=== PATIENT | female | born 1960 | race Caucasian/White ===

== ENCOUNTER 2017-10-16 10:11 | Emergency (ER) | payer BC, SELFPAY ==
[2017-10-16] VITALS (9 sets, daily range): BP systolic 103–122; BP diastolic 65–90; PULSE 72–109; RESP 14–20; TEMP 37.1; O2SAT 95–100; BMI 27.4
[2017-10-16 10:28] LABS: Add Manual Diff / Slide Review NO; Basophils Percent Auto 0.4 % (0-2); Eosinophils Percent Auto 1.5 % (2-4); Hematocrit 43.8 % (36-46); Hemoglobin 15.4 g/dL (12.0-16.0); Lymphocytes Percent Auto 3.2 % (25-40); Mean Corpuscular HGB Conc 35.1 % (30-36); Mean Corpuscular Hemoglobin 33.7 PG (26-34); Mean Corpuscular Volume 95.9 fL (80-100); Monocytes Percent Auto 5.1 % (3-14); Neutrophils Absolute Auto 11100 /uL (3000-5900); Neutrophils Percent Auto 89.8 % (50-75); Platelet Count 267 X10^3/uL (150-400); Red Blood Cell Count 4.57 X10^6/uL (4.0-5.2); Red Cell Distribution Width 13.9 % (11.6-14.8); White Blood Cell Count 12.4 X10^3/uL (4.5-11.0)
--- NOTE | 2017-10-16 10:37 | PC.NURSE ---
CALLED JONATHAN PER PTS REQUEST TO INFORM HER ON PTS CONDITION
[2017-10-16 10:45] LABS: Alanine Aminotransferase 23 IU/L (9-52); Albumin 4.3 g/dL (3.5-5.0); Albumin Globulin Ratio 1.3 (1.0-2.8); Alkaline Phosphatase 61 U/L (38-126); Aspartate Aminotransferase 28 IU/L (14-36); Bilirubin Total 0.8 mg/dL (0.2-1.3); Calcium 8.9 mg/dL (8.4-10.2); Estimated Glomerular Filt Rate > 60.0 mL/min (>60); Globulin 3.3 g/dL (1.7-4.1); Glucose 129 mg/dL (70-100); HEMOLYSIS 45 (0-50); Potassium 4.6 mmol/L (3.4-5.1); Sodium 143 mmol/L (137-145); Total Protein 7.6 g/dL (6.3-8.2)
[2017-10-16] MEDS: ONDANSETRON 4 MG/2 ML INJ IV (10:47)
[2017-10-16] MEDS: SODIUM CHLORIDE 0.9% 1,000 ML 1000 ML IV ×2 (10:47→12:25)
--- NOTE | 2017-10-16 15:20 | ED_ITS ---
HPI - Abdominal Pain General Chief Complaint: Abdominal Pain Stated Complaint: N/V/D Time Seen by Provider: 10/16/17 10:12 Source: patient and EMS Mode of arrival: EMS Limitations: no limitations History of Present Illness HPI narrative: Patient presents to the emergency department today with a chief complaint of multiple episodes of diarrhea with nausea and some vomiting since 5 :00 a.m.. She complains of some generalized abdominal discomfort. She is not dizzy or lightheaded. She does not live locally and was resting in her car at a local parking lot trying to make her way home. She denies recent antibiotics , travel, exposure to ill persons MD complaint: abdominal pain Onset (ago): hour(s) Pain Consistency: intermittent Location: diffuse Severity: mild Quality: cramping Radiation: none Migration to: no migration Relieving factors: nothing Exacerbating factors: nothing Associated symptoms: nausea and diarrhea Related Data Home Medications Medication Instructions Recorded Confirmed oxycodone 5 mg PO Q4-6H PRN 10/16/17 10/16/17 Previous Rx's Medication Instructions Recorded diphenoxylate-atropine [Lomotil] 1 tab PO Q6H PRN #10 tab 10/16/17 ondansetron [Zofran ODT] 4 mg PO Q6H PRN #14 tab 10/16/17 Allergies Allergy/AdvReac Type Severity Reaction Status Date / Time amoxicillin Allergy Mild Verified 10/16/17 11:01 ampicillin Allergy Mild Verified 10/16/17 11:01 Review of Systems Review of Systems All systems reviewed & are unremarkable except as noted in HPI and below Constitutional Denies chills, Denies fever(s), Denies lethargy and Denies weakness Eyes Denies change in vision, Denies eye discharge, Denies irritation and Denies loss of vision Cardiovascular Denies chest pain, Denies irregular heart rhythm, Denies lightheadedness, Denies palpitations, Denies dyspnea, Denies dyspnea on exertion and Denies orthopnea Respiratory Denies cough, Denies dyspnea, Denies dyspnea on exertion and Denies wheezing Gastrointestinal Gastrointestinal: Reports abdominal pain, Reports change in bowel habits, Reports diarrhea, Reports nausea and Reports vomiting Genitourinary Denies hematuria, Denies flank pain, Denies urinary incontinence and Denies urinary urgency Musculoskeletal Denies back pain, Denies muscle weakness, Denies numbness and Denies tingling Integumentary/Breasts Denies pruritus, Denies erythema, Denies rash and Denies wounds Neurologic Denies confusion, Denies loss of vision, Denies numbness, Denies tingling and Denies weakness Psychiatric Reports anxiety, Denies confusion, Denies depression, Denies homicidal ideation and Denies suicidal ideation Endocrine Denies palpitations Hematologic/Lymphatic Denies easy bruising Allergic/Immunologic Denies wheezing [facility] Surgical History History of section (Acute) Social History Smoking Status: Current every day smoker Exam Narrative Exam Narrative: Pleasant 57-year-old female in mild distress, Const General: cooperative, well developed, in distress and anxious Nutritional Appearance: well nourished Orientation: alert, awake, oriented x3 and not confused HENMT Head: normocephalic and atraumatic Ears: external ears normal and TM's normal bilaterally Nose: external nose normal and No nasal discharge Face and sinus: sinuses nontender, face symmetric, no sinus tenderness and No dry mucous membranes Mouth: oral mucosae normal and moist mucous membranes Throat: posterior oropharynx normal Eyes General: appearance normal, both eyes and all related structures Eyelids: eyelids normal Conjunctivae: conjunctivae normal Sclera: sclerae normal Pupils: PERRL EOM: EOM intact bilaterally Neck Neck: normal visual inspection, trachea midline, No midline deformity and No JVD Lymphatic: No lymphedema Resp Effort & Inspection: normal respiratory effort, able to speak in complete sentences, no respiratory distress and no use of accessory muscles Auscultation: clear to auscultation bilaterally, no rales, no rhonchi and no wheezes Cardio Rate: regular rate Rhythm: regular rhythm Heart Sounds: no click, no gallops, no murmurs and no rubs Pulses: normal peripheral pulses GI Inspection: non-distended Palpation: soft, no hepatosplenomegaly, No guarding, No pulsatile mass and No tender Auscultation: normal bowel sounds Skin General: no rashes or lesions noted, No jaundice and No petechiae Neuro General: alert, awake and oriented x3 Cognition: normal cognition Speech: speech normal Psych Appearance: well kempt Mental Status: mental status grossly normal Attitude: cooperative Thought Content: normal and suicidality Judgment: judgment good MDM - Abdominal Pain Lab Data Result diagrams: 10/16/17 10:10 10/16/17 10:10 Lab Results 10/16/17 10/16/17 Range/Units 10:10 10:10 WBC 12.4 H (4.5-11.0) X10^3/uL RBC 4.57 (4.0-5.2) X10^6/uL Hgb 15.4 (12.0-16.0) g/dL Hct 43.8 (36-46) % MCV 95.9 (80-100) fL MCH 33.7 (26-34) PG MCHC 35.1 (30-36) % RDW 13.9 (11.6-14.8) % Plt Count 267 (150-400) X10^3/uL Neut % (Auto) 89.8 H (50-75) % Lymph % (Auto) 3.2 L (25-40) % Edgar % (Auto) 5.1 (3-14) % Eos % (Auto) 1.5 L (2-4) % Baso % (Auto) 0.4 (0-2) % Neut # (Auto) 60492 H (3203-1097) /uL Sodium 143 (137-145) mmol/L Potassium 4.6 (3.4-5.1) mmol/L Chloride 106.0 (98-107) mmol/L Carbon Dioxide 23.0 (22-32) mmol/L BUN 15.0 (7-17) mg/dL Creatinine 0.50 L (0.52-1.04) mg/dL Estimated GFR > 60.0 (>60) mL/min BUN/Creatinine Ratio 30.0 H (6-22) Glucose 129 H (70-100) mg/dL Calcium 8.9 (8.4-10.2) mg/dL Total Bilirubin 0.8 (0.2-1.3) mg/dL AST 28 (14-36) IU/L ALT 23 (9-52) IU/L Alkaline Phosphatase 61 (38-126) U/L Total Protein 7.6 (6.3-8.2) g/dL Albumin 4.3 (3.5-5.0) g/dL Globulin 3.3 (1.7-4.1) g/dL Albumin/Globulin Ratio 1.3 (1.0-2.8) Course Orders Ordered: ED Orders 10/16/17 10:10 Complete Blood Count AUTO DIFF Stat Comprehensive Metabolic Panel Stat Discontinued Medications Sodium Chloride (Normal Saline 0.9%) 1,000 mls @ 1,000 mls/hr IV BOLUS ONE Stop: 10/16/17 11:16 Last Infusion: 10/16/17 12:31 Dose: 0 mls/hr Admin: 10/16/17 10:47 Dose: 1,000 mls/hr Sodium Chloride (Normal Saline 0.9%) 1,000 mls @ 1,000 mls/hr IV BOLUS ONE Stop: 10/16/17 13:21 Last Admin: 10/16/17 12:25 Dose: 1,000 mls/hr Ondansetron HCl (Zofran) 4 mg IV NOW ONE Stop: 10/16/17 10:18 Last Admin: 10/16/17 10:47 Dose: 4 mg Last Vital Signs Temp 98.7 F 10/16/17 10:27 Pulse 86 10/16/17 14:03 Resp 14 10/16/17 12:32 BP 111/65 10/16/17 14:03 Pulse Ox 99 10/16/17 12:32 Discharge Plan Departure Patient Disposition: Home, Self-Care Clinical Impression: Diarrhea Instructions: Diarrhea Activity Restrictions/Additional Instructions: 1. Drink plenty of fluids with frequent small sips. 2. For the next 24 hours a clear liquid diet is advised. After that please employ a brat diet which would include bananas, rice, apples, toast. 3. Please take medications as directed. 4. Please follow-up with your doctor in the next 1-2 days. Call the office for an appointment. 5. Please return to the emergency Department for any worsening or persistent symptoms, such as increasing pain or fever. Prescriptions: New ondansetron [Zofran ODT] 4 mg tablet,disintegrating 4 mg PO Q6H PRN (Reason: nausea and vomiting) Qty: 14 RF: 0 diphenoxylate-atropine [Lomotil] 2.5-0.025 mg tablet 1 tab PO Q6H PRN (Reason: diarrhea) Qty: 10 RF: 0 No Action oxycodone 5 mg Tablet 5 mg PO Q4-6H PRN (Reason: Pain (Scale Score 4-6)) RF: 0
--- NOTE | 2017-10-16 15:36 | PC.NURSE ---
Patient ambulatory without assistance 10-15 feet. Able toprovide urine specimen. She states I can walk but I'm not ready to run a marathon. Patient now agrees to DC. States I can't believe you're discharging me now in the middle of traffic time.
--- NOTE | 2017-10-16 16:44 | PC.NURSE ---
Patient reports she has no means of getting home to [place]. She reportsher daughter has no car and has no one else she can call. She reports her car is at [facility] where the medics picked her up and she feels safe to drive home from there. However, she reports she does not feel like she can walk to [employer] and she has no means of getting to her car [place] [employer]. She reports she has no b[place]anan to pay for a cab. I spoke with hemodialysis charge nurse Verónica who reports we will get a voucher and pay for a cab to get her to [employer]. Patient is agreeable with this plan. Stephanie JIN in process fo getting cab voucher and calling for cab.
--- NOTE | 2017-10-16 16:47 | PC.NURSE ---
Patient sleeping in bed, she is DC'd however is waiting for cab to arrive. Stephanie ANNABEL reports she will walk her out to the cab with the voucher when it arrives.
--- NOTE | 2017-10-16 17:06 | PC.NURSE ---
Patient walked out to cab with Stephanie JIN.
== END 2017-10-16 17:06 | disposition home or self-care (01) ==
PROVIDERS: Emergency Provider Emergency Medicine
DX: R19.7 Diarrhea, unspecified (principal)
CPT/HCPCS: 80053; 81003; 82962; 85025; 99284; 99285; J2405